=== PATIENT | male | born 2000 | race Two or more races ===

== ENCOUNTER 2024-07-06 08:33 | Inpatient (IN) | payer OTHER ==
[~2024-07-06] VITALS: Ht 180.3 cm; Wt 102.0 kg
[2024-07-06] MEDS ORDERED: CIPR500S PO (08:43)
[2024-07-06] MEDS: ENOXAPARIN 40MG/0.4ML SYRINGE (J1650 PER 10MG) SC SCH (09:00)
[2024-07-06] MEDS: ONDANSETRON 4MG 2ML VIAL IV ONE (10:13)
[2024-07-06] MEDS: NS (Normal Saline) 0.9% 1,000 ML IV ONE ×2 (10:13→11:30)
[2024-07-06 10:23] LABS: BASO % 0.4 % (0.0-1.0); EOS # 0.1 10^3/uL (0.0-0.5); EOS % 1.3 % (0.0-3.0); HEMATOCRIT 44.7 % (42.0-52.0); HEMOGLOBIN 14.8 g/dl (13.5-17.5); LYMPH # 2.3 10^3/uL (1.5-5.0); LYMPH % 20.3 % (24.0-44.0); MEAN CORPUSCULAR HEMOGLOBIN 29.2 pg (27.0-33.0); MEAN CORPUSCULAR HGB CONC 33.1 g/dl (32.0-36.5); MEAN CORPUSCULAR VOLUME 88.3 fl (80.0-96.0); MONO # 1.4 10^3/uL (0.0-0.8); MONO % 12.6 % (2.0-8.0); NEUTROPHILS # 7.3 10^3/uL (1.5-8.5); PLATELET COUNT, AUTOMATED 345 10^3/uL (150-450); RED BLOOD COUNT 5.06 10^6/uL (4.30-6.10); WHITE BLOOD COUNT 11.2 10^3/uL (4.0-10.0)
[2024-07-06 10:54] LABS: CALCIUM LEVEL 8.2 MG/DL (8.5-10.1); CREATININE FOR GFR 2.76 MG/DL (0.70-1.30); GLOMERULAR FILTRATION RATE 32.3 (>60); POTASSIUM SERUM 4.1 MMOL/L (3.5-5.1)
[2024-07-06] MEDS: cefTRIAXone SOD 1 GM in DEXTROSE 5% (D5W) ADV/MINI-BAG 50 ML IV ONE (11:49)
[2024-07-06] MEDS ORDERED: ACETAMINOPHEN 325 MG TAB PO PRN (11:55)
[2024-07-06] MEDS ORDERED: traMADol 50 MG TAB PO PRN (11:55)
[2024-07-06 11:56] LABS: APPEARANCE, URINE CLEAR (CLEAR); BACTERIA, URINE AUTO 1+ (NEGATIVE); BILIRUBIN, URINE AUTO NEGATIVE (NEGATIVE); BLOOD, URINE BLOOD NEGATIVE (NEGATIVE); COLOR, URINE YELLOW (YELLOW); GLUCOSE, URINE (UA) AUTO NEGATIVE (NEGATIVE); KETONE, URINE AUTO NEGATIVE (NEGATIVE); LEUKOCYTE ESTERASE, URINE AUTO NEGATIVE (NEGATIVE); MUCUS, URINE SMALL (NEGATIVE); NITRITE, URINE AUTO NEGATIVE (NEGATIVE); PROTEIN, URINE AUTO 1+ mg/dL (NEGATIVE); RBC, URINE AUTO 2 /HPF (0-3); SPECIFIC GRAVITY URINE AUTO 1.012 (1.002-1.035); SQUAMOUS EPITHELIAL CELL UR AU 0 /HPF (0-6); UROBILINOGEN, URINE AUTO 0.2 mg/dL (0.0-2.0); WBC, URINE AUTO 11 /HPF (0-3)
[2024-07-06] MEDS ORDERED: CIPR500T39 PO (12:59)
[2024-07-06] MEDS ORDERED: HOME MED LIST COMPLETE! XX SCH (13:00)
[2024-07-06 13:19] LABS: INR 1.02; PARTIAL THROMBOPLASTIN TIME 28.3 SECONDS (24.8-34.2); PROTHROMBIN TIME 13.7 SECONDS (12.5-14.5)
[2024-07-06] MEDS: NS (Normal Saline) 0.9% 1,000 ML IV SCH (13:22)
[2024-07-06 14:55] VITALS: BP 120/69; TEMP 97.9; O2SAT 98
[2024-07-06] MEDS: ONDANSETRON 4MG TAB PO PRN (17:18)
[2024-07-06 20:00] VITALS: BP 117/63; TEMP 97.5; O2SAT 99
[2024-07-06] MEDS: PROCHLORPERAZINE 10MG 2ML VIAL IV PRN (20:29)
[2024-07-07 04:01] VITALS: BP 125/63; TEMP 97.7; O2SAT 99
[2024-07-07 08:19] LABS: HEMATOCRIT 43.8 % (42.0-52.0); HEMOGLOBIN 14.2 g/dl (13.5-17.5); MEAN CORPUSCULAR HEMOGLOBIN 29.3 pg (27.0-33.0); MEAN CORPUSCULAR HGB CONC 32.4 g/dl (32.0-36.5); MEAN CORPUSCULAR VOLUME 90.5 fl (80.0-96.0); PLATELET COUNT, AUTOMATED 320 10^3/uL (150-450); RED BLOOD COUNT 4.84 10^6/uL (4.30-6.10); WHITE BLOOD COUNT 11.1 10^3/uL (4.0-10.0)
[2024-07-07 08:46] LABS: ALBUMIN 2.9 G/DL (3.2-5.2); BILIRUBIN,DIRECT 0.1 MG/DL (<0.4); BILIRUBIN,TOTAL 0.5 MG/DL (0.3-1.2); CALCIUM LEVEL 8.1 MG/DL (8.5-10.1); CREATININE FOR GFR 2.13 MG/DL (0.70-1.30); GLOMERULAR FILTRATION RATE 44.1 (>60); POTASSIUM SERUM 4.2 MMOL/L (3.5-5.1); TOTAL PROTEIN 6.5 G/DL (5.7-8.2)
[2024-07-07 12:00] VITALS: BP 136/79; TEMP 97.7; O2SAT 97
[2024-07-07] MEDS ORDERED: ONDANSETRON 4MG 2ML VIAL IV PRN (13:35)
[2024-07-07 13:56] LABS: CHOLESTEROL RISK RATIO 10.28 (<5); HDL CHOLESTEROL 17.5 MG/DL (>40); LDL CHOLESTEROL 89.5 MG/DL (<100); NON-HDL-C 162.5 MG/DL
[2024-07-07] MEDS: PIPERACILLIN/TAZOBACTAM SOD 3.375 GM in DEXTROSE 5% (D5W) ADV/MINI-BAG 50 ML IV SCH (14:18)
[2024-07-07 14:42] LABS: HEMOGLOBIN A1c 5.2 % (4.0-6.0)
[2024-07-07] MEDS: HEPARIN SOD (PORCINE) 5000UNITS/ML 1ML VIAL/SYRINGE SQ SCH (21:00)
[2024-07-07 21:31] VITALS: BP 140/82; TEMP 98.1; O2SAT 98
[2024-07-08 05:06] VITALS: BP 128/72; TEMP 98.4; O2SAT 95
[2024-07-08 07:24] LABS: HEMATOCRIT 42.4 % (42.0-52.0); MEAN CORPUSCULAR HEMOGLOBIN 29.3 pg (27.0-33.0); MEAN CORPUSCULAR VOLUME 88.7 fl (80.0-96.0); PLATELET COUNT, AUTOMATED 330 10^3/uL (150-450); RED BLOOD COUNT 4.78 10^6/uL (4.30-6.10); WHITE BLOOD COUNT 13.4 10^3/uL (4.0-10.0)
[2024-07-08 07:55] LABS: ALBUMIN 2.9 G/DL (3.2-5.2); BILIRUBIN,TOTAL 0.6 MG/DL (0.3-1.2); CREATININE FOR GFR 1.6 MG/DL (0.70-1.30); GLOMERULAR FILTRATION RATE 62.1 (>60); TOTAL PROTEIN 6.5 G/DL (5.7-8.2)
[2024-07-08 08:00] VITALS: BP 132/78; TEMP 97.3; O2SAT 97
[2024-07-08] MEDS ORDERED: COLA100C5 PO (10:09)
[2024-07-08] MEDS: DOCUSATE SODIUM 100MG CAPSULE PO SCH (11:33)
[2024-07-09] MEDS ORDERED: METAMUCIL (PSYLLIUM) PACKET PO SCH (09:00)
== END 2024-07-08 13:05 | disposition home or self-care (01) | DRG 445 ==
LOC: M ED 08:33 → M ED INP 11:51 → M MS5PR 14:45 → OBSVTOIN 07-07 13:29
PROVIDERS: ADMIT Internal Medicine; ATTEND Internal Medicine
DX: K82.8 Other specified diseases of gallbladder (principal); N17.9 Acute kidney failure, unspecified; E78.5 Hyperlipidemia, unspecified; E86.0 Dehydration; H66.92 Otitis media, unspecified, left ear; R11.2 Nausea with vomiting, unspecified; K59.00 Constipation, unspecified; K76.0 Fatty (change of) liver, not elsewhere classified; Z79.2 Long term (current) use of antibiotics; Z83.3 Family history of diabetes mellitus

== ENCOUNTER 2025-03-21 09:45 | Emergency (ER) | payer OTHER ==
[~2025-03-21] VITALS: Ht 182.9 cm; Wt 102.9 kg
[~2025-03-21 09:45] MED LIST: CIPR500S PO; CIPR500T39 PO; COLA100C5 PO
[2025-03-21] MEDS ORDERED: AMLO1TAB24 PO (11:35)
== END 2025-03-21 12:03 | disposition home or self-care (01) ==
LOC: M ED 09:45
DX: I73.00 Raynaud's syndrome without gangrene (principal); N17.9 Acute kidney failure, unspecified